=== PATIENT | female | born 1965 | race Caucasian/White ===

== ENCOUNTER 2016-11-28 12:38 | Emergency (ER) | payer OTHER ==
[~2016-11-28] VITALS: Ht 162.6 cm; Wt 66.4 kg
[2016-11-28 12:42] VITALS: BP 165/80; PULSE 60; RESP 16; O2SAT 100
--- NOTE | 2016-11-28 13:05 | ED.REPORT ---
HPI-Trauma Minor / Fall Date of Service Nov 28, 2016 ED Provider: History of Present Illness: monday night was pounding posts with a sledge hammer, hit self in head, no loc. bebe is primary care 09/24. took ibuprofen yesterday. Has felt off since episode. Nursing Notes Stated Complaint: MILD CONCUSSION Chief Complaint: Head, Face, Neck Trauma Nursing Notes Reviewed: Yes Allergies: Coded Allergies: Penicillins (Verified Allergy, Unknown, 11/28/16) General Time Seen by MD: 13:04 Chief Complaint Head pain, Other (hit self in head with sledge hammer) Hx Obtained From: Patient Onset Occurred: 3 days ago Symptom Duration: Since onset Past Medical History Past Medical History Denies: Asthma, Diabetes mellitus Past Surgical History denies Smoking History Never Smoker Social History Alcohol Use: Denies alcohol use Drug Use: Denies drug use Occupation work at [employer] in [place] Ambulatory Status Independent Review of Systems Basic Review of Systems Cardiovascular: No chest pain, No dyspnea on exertion, No orthopnea, No parox noct dyspnea, No palpitations Hematologic: No bleeding, No bruising Psychiatric: Normal thought content Physical Exam Initial Vital Signs Vital Signs (First) Date Time Temp Pulse Resp B/P Pulse Ox O2 Delivery O2 Flow Rate FiO2 11/28/16 12:42 36.7 60 16 165/80 100 Room Air Initial VS: Reviewed, Vital signs normal Head / Eyes: Atraumatic, Normocephalic, PERRL ENT: Mucous membranes moist, Conjunctiva normal, No scleral icterus Respiratory: Breath sounds normal, Clear to auscultation, No respiratory distress Cardiovascular: Regular rate & rhythm, Heart sounds normal, Intact distal pulses Abdomen / GI: Soft, Non-tender, No guarding, No rebound, No distention Back: No CVA tenderness Lymphatic: No lymphadenopathy Extremities: Vascular intact, Neuro intact, No swelling, No tenderness Skin: Warm, Dry, No cyanosis Neurologic: Alert, Oriented, Nonfocal Psychiatric: Mood/affect normal, Behavior normal, Normal thought content General/Constitutional: Awake, Alert, No acute distress patient with faint erthyma on top of scalp. No swelling noted. No hematoma or eccchymosis noted. No skin trauma noted. Neck: Atraumatic, Supple, No meningismus, Full range of motion, No adenopathy ENT: Atraumatic, Airway patent, Mucous membranes moist, Pharynx NL, No peritonsillar abscess Respiratory / Chest: Atraumatic, Breath sounds NL, Breath sounds = bilat, No respiratory distress Cardiovascular: Heart rate NL, Regular rhythm, Heart sounds NL Abdomen: Atraumatic, Soft, Non-tender, McBurney's non-tender Interpretation & Diagnostics CT Head Interpretation INDICATIONS: hit in head with sledge hammer pain TECHNIQUE: Noncontrast 4.5 mm thick angled axial sections acquired from the foramen magnum to the vertex, with coronal reformats. COMPARISON: None. FINDINGS: Image quality: Excellent. CSF spaces: Basal cisterns are patent. No extra-axial fluid collections. Ventricles are normal in size and shape. Brain: No intracranial hemorrhage, mass, or mass effect. Lr-white matter interface is preserved. Skull and face: Calvarium and visualized facial bones are intact, without suspicious lesions. Sinuses: Visualized sinuses and mastoids are clear. IMPRESSION: 1. No acute intracranial abnormality. Dictated by: Kiran Velez M.D. on 11/28/2016 at 13:41 Approved by: Kiran Velez M.D. on 11/28/2016 at 13:43 CT C-Spine Interpretation ROCEDURE: CT CERVICAL SPINE WITHOUT CONTRAST ([id number]) INDICATIONS: hit in head with sledge hammer pain TECHNIQUE: Noncontrast 3 mm thick sections acquired from the skull base to the T4 level. Sagittal and coronal reformats were then constructed. For radiation dose reduction, the following was used: automated exposure control, adjustment of mA and/or kV according to patient size. COMPARISON: None. FINDINGS: Image quality: Excellent. Bones: No fractures or dislocations. There is multilevel facet arthropathy in the upper cervical spine with fusion on the right at C2-C3. There is mild left uncovertebral joint arthropathy at C3-C4 and C4-C5. Visualized superior ribs are intact. Soft tissues: Prevertebral soft tissues are normal in thickness. No paravertebral hematomas. No apical pneumothoraces. IMPRESSION: 1. No fracture or subluxation. Dictated by: Kiran Velez M.D. on 11/28/2016 at 13:43 Approved by: Kiran Velez M.D. on 11/28/2016 at 13:45 Re-Eval/Medical Decision Med Decision/Clinical Course 51 year old female presents for evualation of head trauma which occured Monday evening. No vomiting. No sign of skull fracture or brain bleed. Discharge & Departure Impression: Primary Impression: Head injury Encounter type: initial encounter Qualified Code: S09.90XA - Unspecified injury of head, initial encounter Additional Impression: Concussion Encounter type: initial encounter Loss of consciousness presence/duration: without LOC Qualified Code: S06.0X0A - Concussion without loss of consciousness, initial encounter Disposition: Home Patient Instructions: Concussion (ED), Head Injury (ED) Additional Instructions: The CT of your head and neck is normal! No sign of any skull fracture or c- spine fracture. Try to resume your normal activity as soon as possible. Use ibuprofen 800 mg up to 3 times a day for any discomfort. Please follow with primary care as needed. Return with any concerns. I am sorry this happened. Referrals: Kiran Rodriguez MD EDSupervising Provider for APC: Jourdan Keith DO copies to: Kiran Rodriguez MD, Sue ARNP Nov 28, 2016 13:05
--- NOTE | 2016-11-28 13:44 | DRSVH ---
PROCEDURE: CT BRAIN WITHOUT CONTRAST ([id number]) INDICATIONS: hit in head with sledge hammer pain TECHNIQUE: Noncontrast 4.5 mm thick angled axial sections acquired from the foramen magnum to the vertex, with c oronal reformats. COMPARISON: None. FINDINGS: Image quality: Excellent. CSF spaces: Basal cisterns are patent. No extra-axial fluid collections. Ventricles are normal in size and shape. Brain: No intracranial hemorrhage, mass, or mass effect. Lr-white matter interface is preserved. Skull and face: Calvarium and visualized facial bones are intact, without suspicious lesions. Sinuses: Visualized sinuses and mastoids are clear. IMPRESSION: 1. No acute intracranial abnormality. Dictated by: Kiran Velez M.D. on 11/28/2016 at 13:41 Approved by: Kiran Velez M.D. on 11/28/2016 at 13:43
--- NOTE | 2016-11-28 13:47 | DRSVH ---
PROCEDURE: CT CERVICAL SPINE WITHOUT CONTRAST ([id number]) INDICATIONS: hit in head with sledge hammer pain TECHNIQUE: Noncontrast 3 mm thick sections acquired from the skull base to the T4 level. Sagittal and coronal r eformats were then constructed. For radiation dose reduction, the following was used: automated exp osure control, adjustment of mA and/or kV according to patient size. COMPARISON: None. FINDINGS: Image quality: Excellent. Bones: No fractures or dislocations. There is multilevel facet arthropathy in the upper cervical sp ine with fusion on the right at C2-C3. There is mild left uncovertebral joint arthropathy at C3-C4 a nd C4-C5. Visualized superior ribs are intact. Soft tissues: Prevertebral soft tissues are normal in thickness. No paravertebral hematomas. No ap ical pneumothoraces. IMPRESSION: 1. No fracture or subluxation. Dictated by: Kiran Velez M.D. on 11/28/2016 at 13:43 Approved by: Kiran Velez M.D. on 11/28/2016 at 13:45
== END 2016-11-28 15:00 | disposition home or self-care (01) ==
LOC: SED 12:38
DX: S06.0X0A Concussion without loss of consciousness, initial encounter (principal); W22.8XXA Striking against or struck by other objects, initial encounter; Y93.89 Activity, other specified; Y99.8 Other external cause status; Y92.017 Garden or yard in single-family (private) house as the place of occurrence of the external cause; Z88.0 Allergy status to penicillin